=== PATIENT | male | born 1980 | race African-American/Black ===

== ENCOUNTER 2020-10-31 11:28 | Inpatient (IN) | payer OTHER ==
[~2020-10-31] VITALS: Ht 182.9 cm; Wt 102.1 kg
[2020-10-31] MEDS ORDERED: DEXAMETHASONE SOD PHOSPHATE 10 MG/ML VIAL ONE (11:45)
[2020-10-31] MEDS ORDERED: DEXAMETHASONE SOD PHOSPHATE 10 MG/ML VIAL IV ONE (12:00)
[2020-10-31 12:04] LABS: BASOPHILS % (AUTO) 0.5 % (0.0-2.0); EOSINOPHILS % (AUTO) 1.3 % (0.0-6.0); HEMATOCRIT 48 % (39-51); HEMOGLOBIN 16.1 g/dL (13.5-17.5); LYMPHOCYTES # (AUTO) 0.9 K/uL (0.8-4.8); LYMPHOCYTES % (AUTO) 21.7 % (20.0-44.0); MEAN CORPUSCULAR HGB CONC 34 g/dl (31.0-36.0); MEAN CORPUSCULAR VOLUME 88 fL (80-96); MONOCYTES # (AUTO) 0.5 K/uL (0.1-1.30); MONOCYTES % (AUTO) 11.9 % (2.0-12.0); NEUTROPHILS # (AUTO) 2.6 K/uL (1.8-8.9); NEUTROPHILS % (AUTO) 64.6 % (43.0-81.0); PLATELET COUNT (AUTO) 218 K/uL (150-450); RED BLOOD CELL COUNT(AUTO) 5.44 MIL/uL (4.5-6.0)
--- NOTE | 2020-10-31 12:08 | NUR ---
"COVID positive since 10/20. NOT better. Still feel SOB". PT AAOX4, DENIES CP, DIZZINESS, N/V AT THIS TIME. PT SEEN & EVAL'D BY DR. MARCANO. PLACED ON CRO, SR. MEDICATED ORDERED, PT VAL WELL. WILL CONT TO MONITOR.
[2020-10-31 12:16] LABS: CALCIUM, SERUM 8.6 mg/dL (8.5-10.1); CARBON DIOXIDE 26 mmol/L (21-32); CHLORIDE 98 mmol/L (98-107); GLUCOSE 100 mg/dL (74-106); SODIUM SERUM 135 mmol/L (136-145); UREA NITROGEN, BLOOD 14 mg/dL (7-18)
[2020-10-31 12:28] LABS: ALANINE AMINOTRANSFERASE 54 U/L (12-78); ALBUMIN 3.2 g/dL (3.4-5.0); ALKALINE PHOSPHATASE 48 U/L (46-116); ASPARTATE AMINOTRANSFERASE 32 U/L (15-37); BILIRUBIN,TOTAL 1.5 mg/dL (0.2-1.0); TOTAL PROTEIN, SERUM 7.9 g/dL (6.4-8.2)
[2020-10-31 12:48] LABS: CREATINE KINASE, TOTAL 291 U/L (39-308); FERRITIN 878 ng/mL (8-388)
[2020-10-31 12:55] LABS: C-REACTIVE PROTEIN 5.6 mg/dL (0.0-0.9)
[2020-10-31 13:06] LABS: D-DIMER 23.48 mg/L(FEU (0.17-0.50)
[2020-10-31] MEDS ORDERED: IOHEXOL-350 100 ML VIAL IV ONE (13:58)
[2020-10-31] MEDS ORDERED: CT SWABBABLE VALVE TRANS SET 1 EA INFUS.SET MC ONE (13:58)
[2020-10-31] MEDS ORDERED: IV NS 0.9% 250 ML IV ONE (13:58)
--- NOTE | 2020-10-31 14:45 | NUR ---
PT VSS, " THE OXYGEN REALLY HELPS ". DENIES CP, SOB, DIZZINESS, N/V AT THIS TIME. O2 SAT 97% 2L. ON TELE, SR. WILL CONT TO MONITOR.
[2020-10-31] MEDS ORDERED: HEPARIN INFUSION/D5W 500 ML IV ONE ×2 (15:00→15:43)
--- NOTE | 2020-10-31 15:30 | NUR ---
CALLED NURSING SUP FOR TELE BED.
[2020-10-31] MEDS ORDERED: MORPHINE SULFATE INJ 2 MG/ML DISP.SYRIN IV PRN (16:00)
[2020-10-31] MEDS ORDERED: MAGNESIUM HYDROXIDE 30 ML UDC PO PRN (16:00)
[2020-10-31] MEDS ORDERED: MAG HYDROX/AL HYDROX/SIMETH 30 ML UDC PO PRN (16:00)
[2020-10-31] MEDS ORDERED: Z GUARD REMEDY 2 OZ OINT TP PRN (16:00)
[2020-10-31] MEDS ORDERED: ONDANSETRON HCL/PF 4 MG/2 ML VIAL IVP PRN (16:00)
[2020-10-31] MEDS ORDERED: ACETAMINOPHEN 325 MG TABLET PO PRN (16:00)
--- NOTE | 2020-10-31 19:56 | NUR ---
TELE 107
--- NOTE | 2020-10-31 20:02 | NUR ---
REPORT CALLED TO TELE-TD MIKY KISHA. WILL TRANSOPRT PT VIA ACLS PROTOCOL.
[2020-11-01] VITALS: BP 127/81
[2020-11-01 04:00] VITALS: BP 128/76
--- NOTE | 2020-11-01 04:02 | NUR ---
RN notes Admitted a 31 year old male from ER via stretcher in stable condition with diagnosis of covid/bilateral lung pulmonary embolism. Alert and oriented, ambulatory. Able to communicate needs verbally. No complaint of pain or discomfort. On 3lpm O2 via nasal cannula tolerating well. Kept clean and dry. Will endorse to next shift for continuity of care.
[2020-11-01] MEDS ORDERED: HEPARIN INFUSION/D5W 500 ML IV ONE (05:51)
[2020-11-01] MEDS ORDERED: HEPARIN INFUSION/D5W 500 ML IV PRN ×2 (06:00→06:08)
[2020-11-01 06:27] LABS: BASOPHILS % (AUTO) 0.2 % (0.0-2.0); EOSINOPHILS % (AUTO) 0.2 % (0.0-6.0); HEMATOCRIT 45 % (39-51); HEMOGLOBIN 15.6 g/dL (13.5-17.5); LYMPHOCYTES # (AUTO) 0.7 K/uL (0.8-4.8); LYMPHOCYTES % (AUTO) 16.1 % (20.0-44.0); MEAN CORPUSCULAR HGB CONC 35 g/dl (31.0-36.0); MEAN CORPUSCULAR VOLUME 87 fL (80-96); MONOCYTES # (AUTO) 0.6 K/uL (0.1-1.30); MONOCYTES % (AUTO) 14.6 % (2.0-12.0); NEUTROPHILS # (AUTO) 2.8 K/uL (1.8-8.9); NEUTROPHILS % (AUTO) 68.9 % (43.0-81.0); PLATELET COUNT (AUTO) 262 K/uL (150-450); RED BLOOD CELL COUNT(AUTO) 5.18 MIL/uL (4.5-6.0); WHITE BLOOD COUNT (AUTO) 4.1 K/uL (4.3-11.0)
[2020-11-01] MEDS: HEPARIN INFUSION/D5W 500 ML IV PRN ×2 (07:23→10:32)
--- NOTE | 2020-11-01 07:35 | NUR ---
RN notes Lab result for PT 12.1/INR 1.16/aPTT 83.8. Units decreased by 200 per protocol. New dose rate 1600 (32mls/unit). Next PTPTT 13:30. Order done.
[2020-11-01 08:00] VITALS: BP 118/79
[2020-11-01 08:54] LABS: CALCIUM, SERUM 8.9 mg/dL (8.5-10.1); MAGNESIUM 2.6 mg/dL (1.8-2.4); PHOSPHORUS 3.6 mg/dL (2.5-4.9); POTASSIUM 4.6 mmol/L (3.5-5.1)
[2020-11-01] MEDS: DEXAMETHASONE SOD PHOSPHATE 4 MG/ML VIAL IV SCH (10:02)
[2020-11-01] MEDS: PANTOPRAZOLE 40 MG TABLET.DR PO SCH (10:40)
[2020-11-01 12:00] VITALS: BP 119/72
[2020-11-01 16:00] VITALS: BP 117/70
[2020-11-01 20:00] VITALS: BP 128/84
[2020-11-02] VITALS: BP 120/78
[2020-11-02] MEDS: HEPARIN INFUSION/D5W 500 ML IV PRN (01:05)
[2020-11-02 04:00] VITALS: BP 120/77
--- NOTE | 2020-11-02 04:11 | NUR ---
RN notes Received patient awake in bed watching tv. No distress noted. Breathing even and unlabored. On nasal cannula at 2lpm tolerating well. Alert and oriented. Able to verbally communicate needs. No complaint of pain or discomfort. Patient is saying he feels better than yesterday and doing just fine. Still on heparin drip at 1600 units/hr or 32mls/hr. Next PT/INR at 13:30 11/02/20. No adverse effect noted. No signs of symptoms of bleeding observed. Kept clean and dry. Will endorse to next shift for continuity of care.
--- NOTE | 2020-11-02 08:00 | NUR ---
RN Note: Pt received alert awake oriented X4. ON RA, no breathing distress noted. Denies chest pain & discomfort. Safety measures/bleeding precautions observed. Continue with heparin drip as ordered. Encourage pt to use call light for assistance. Call light within reach.
[2020-11-02] MEDS: PANTOPRAZOLE 40 MG TABLET.DR PO SCH (08:41)
[2020-11-02] MEDS: DEXAMETHASONE SOD PHOSPHATE 4 MG/ML VIAL IV SCH (08:42)
[2020-11-02 09:00] VITALS: BP 118/70
[2020-11-02 12:00] VITALS: BP 114/69
[2020-11-02] MEDS ORDERED: APIX5TAB PO (12:02)
[2020-11-02] MEDS ORDERED: ALBU90AE IH (12:02)
[2020-11-02] MEDS ORDERED: DEXA4TAB PO (12:02)
[2020-11-02] MEDS ORDERED: APIXABAN 5 MG TABLET PO STA (12:03)
[2020-11-02 16:00] VITALS: BP 126/75
--- NOTE | 2020-11-02 16:44 | NUR ---
RN Note: Pt discharge home AXAXOX4. On RA no breathing distress noted. Denies pain & discomfort. Ambulatory, Steady gait. Discharge instructions given to the pt. Oxygen use & safety home use discussed in details with pt. New prescriptions instructions given to the pt, verbalized understanding. Discharge package hand over to the pt. IV cath removed, applied pressure dressing. Left from room with all belongings via uber called by pt.
== END 2020-11-02 16:40 | disposition home or self-care (01) | DRG 871 ==
LOC: ER 11:31 → TELE1 20:18 → TELE-TD 20:55
PROVIDERS: ADMIT Internal Medicine; ATTEND Internal Medicine
DX: A41.89 Other specified sepsis (principal); I26.99 Other pulmonary embolism without acute cor pulmonale; U07.1 COVID-19; J12.82 Pneumonia due to coronavirus disease 2019; J96.01 Acute respiratory failure with hypoxia; E66.9 Obesity, unspecified
CPT/HCPCS: 36415; 71045-TC; 80048-TC; 80053-TC; 80061-TC; 82550-TC; 82728-TC; 83605-TC; 83615-TC; 83735-TC; 83880; 84100-TC; 84484-TC; 85025-TC; 85378-TC; 85730-TC; 86140-TC; 87040-TC; 93308-TC; 93970-TC; 97116-TC; 97530-TC; G0378; J1100; J1644; J7050; Q9967; U0003